=== PATIENT | male | born 1980 | race Caucasian/White ===

== ENCOUNTER 2016-10-11 15:19 | Emergency (ER) | payer BC ==
--- NOTE | 2016-10-11 15:47 | EDPHY ---
H & P Time Seen by Provider: 10/11/16 15:45 HPI/ROS: CHIEF COMPLAINT: Diarrhea, shaking, vomiting HISTORY OF PRESENT ILLNESS: This patient is a 36 year old male arriving with his complaining of abdominal pain, diarrhea, and dizziness onset this morning. He is visiting from [place], and did not feel well upon arrival in [place] on Monday evening, five days ago and experienced dizziness and diarrhea. He slept for 12 hours Monday night, and felt much better Monday and Monday. Sx completely resolved. This morning while visiting the [facility], he had a recurrence of black, watery, diarrhea with associated intermittent abdominal pain localized below his ribcage on the right. These pains are occasionally sharp, but more often feels like pressure. He has associated dizziness, lack of appetite, and nausea, and states "everything seems bright". He endorses one episode of vomiting. Per his , he is very sensitive to smells. He denies fever, shortness of breath, chest pain, or other associated symptoms. REVIEW OF SYSTEMS: A 10 point review of systems was performed and is negative with the exception of the elements mentioned in the history of present illness. Past Medical/Surgical History: Pneumonia. Social History: at bedside. Visiting from [place]. . Smoking Status: Never smoked Physical Exam: General Appearance: Pale, appears uncomfortable. Alert. Eyes: Pupils equal and round, no conjunctival pallor or injection ENT, Mouth: Mucous membranes moist Neck: Normal inspection Respiratory: Lungs are clear to auscultation Cardiovascular: Regular rate and rhythm Gastrointestinal: Epigastric tenderness. Abdomen is soft, hyperactive BS Neurological: A&O, nonfocal, normal gait Skin: Warm and dry, no rash Extremities: Nontender, no pedal edema Psychiatric: Mood and affect normal Constitutional: Initial Vital Signs Temperature (C) 36.7 C 10/11/16 15:22 Heart Rate 85 10/11/16 15:22 Respiratory Rate 22 H 10/11/16 15:22 Blood Pressure 138/74 H 10/11/16 15:22 O2 Sat (%) 99 10/11/16 15:22 O2 Delivery Mode Room Air Allergies/Adverse Reactions: No Known Allergies Allergy (Unverified 10/11/16 15:22) Home Medications: Medication Instructions Recorded Ondansetron Odt [Zofran Odt 4 mg 4 mg PO Q4 PRN #6 tab 10/11/16 (*)] Medical Decision Making ED Course/Re-evaluation: 36 year old male presents with nausea, vomiting and diarhea onset this morning. Physical exam reveals mild epigastric tenderness. c/w AGE, doubt surgical abd.. Plan for labs including CBC, BMP. Plan to administer 4mg IV Zofran, 15mg IV Toradol, and 1L IV NS for symptom relief. 17:03 Reassessed patient. He is feeling much better. Abdomen is soft and nontender. He would like to return home. Plan to discharge home in good condition with prescription for Zofran. Follow up and return precautions discussed. The patient is comfortable with this plan. Differential Diagnosis: includes though not limited to cholecystitis, pancreatitis, appy, hepatitis - Data Points Laboratory Results: Laboratory Results 10/11/16 16:00 10/11/16 16:00 Medications Given: Discontinued Medications Sodium Chloride (Ns) 1,000 mls @ 0 mls/hr IV EDNOW ONE; Wide Open PRN Reason: Protocol Stop: 10/11/16 15:56 Last Admin: 10/11/16 16:09 Dose: 1,000 mls Ketorolac Tromethamine (Toradol) 15 mg IVP EDNOW ONE Stop: 10/11/16 15:56 Last Admin: 10/11/16 16:10 Dose: 15 mg Ondansetron HCl (Zofran) 4 mg IVP EDNOW ONE Stop: 10/11/16 15:56 Last Admin: 10/11/16 16:10 Dose: 4 mg Departure - Departure Disposition: Home, Routine, Self-Care Clinical Impression: Vomiting and diarrhea Condition: Good Instructions: Acute Nausea and Vomiting (ED), Acute Diarrhea (ED) Additional Instructions: 1. Maintain a clear liquid diet for the next 24 hours. Following that, introduce bland foods as tolerated. 2. Take Zofran as prescribed as needed for nausea. 3. Follow up with your primary care provider at home. If you need to follow up sooner, we have referred you to our primary care physician occupational therapy assistant. 4. Return to the emergency department for uncontrollable vomiting or diarrhea, worsening abdominal pain, fever, or other worsening of condition. Referrals: NONE *PRIMARY CARE P,. [Primary Care Provider] - As per Instructions Gurdeep Dumont MD [Medical Doctor] - As per Instructions Prescriptions: Ondansetron Odt [Zofran Odt 4 mg (*)] 4 mg PO Q4 PRN #6 tab PRN Reason: Nausea Report Scribed for: Teri Hinton Report Scribed by: Melania Bhatti Date of Report: 10/11/16 Time of Report: 15:46 Physician Review and Approval Statement: 10/11/16 15:46 Portions of this note were transcribed by a auditor medical claims. I personally performed a history, physical exam, medical decision making, and confirmed accuracy of information the transcribed note.
[2016-10-11] MEDS ORDERED: ONDANSETRON 4 MG/2 ML VIAL IVP ONE (15:55)
[2016-10-11] MEDS ORDERED: NS 1,000 ML IV ONE (15:55)
[2016-10-11] MEDS ORDERED: KETOROLAC 15 MG/1 ML SDV IVP ONE (15:55)
[2016-10-11 16:02] VITALS: RESP 16
[2016-10-11 16:14] LABS: % IMMATURE GRANULYOCYTES 0.6 % (0.0-1.1); ABSOLUTE IMMATURE GRANULOCYTES 0.05 10^3/uL (0.00-0.10); ADD DIFF? NO; ADD MORPH? NO; ADD SCAN? NO; ATYPICAL LYMPHOCYTE FLAG 0 (0-99); FRAGMENT RBC FLAG 0 (0-99); HEMATOCRIT 44.5 % (40.0-51.0); LEFT SHIFT FLG 0 (0-99); LIPEMIA HEMOLYSIS FLAG 90 (0-99); MEAN CELL HEMOGLOBIN 30.6 pg (27.9-34.1); MEAN CELL VOLUME 85.1 fL (81.5-99.8); MEAN PLATELET VOLUME 10.6 fL (8.7-11.7); PLATELET CLUMPS FLAG 0 (0-99); PLATELET COUNT 162 10^3/uL (150-400); RED BLOOD CELL COUNT 5.23 10^6/uL (4.40-6.38); RED CELL DISTRIBUTION WIDTH 11.9 % (11.5-15.2)
[2016-10-11 17:10] VITALS: BP 126/84; PULSE 75; TEMP 98.2; O2SAT 95
[2016-10-11 17:21] LABS: ANION GAP 14 mEq/L (8-16); CALCIUM 9.7 mg/dL (8.5-10.4); CARBON DIOXIDE 20 mEq/l (22-31); CHLORIDE 104 mEq/L (97-110); GLOMERULAR FILTRATION RATE > 60; GLUCOSE 103 mg/dL (70-100); POTASSIUM 3.9 mEq/L (3.5-5.2); SODIUM 138 mEq/L (134-144)
== END 2016-10-11 17:30 | disposition home or self-care (01) ==
DX: R19.7 Diarrhea, unspecified (principal); R11.10 Vomiting, unspecified; E86.9 Volume depletion, unspecified
CPT/HCPCS: 96374; J1885; J2405